=== PATIENT | male | born 1930 | race Two or more races ===

== ENCOUNTER 2016-04-22 13:40 | Observation (INO) | payer MEDICARE, MEDICAID ==
[~2016-04-22] VITALS: Ht 162.6 cm; Wt 76.6 kg
[~2016-04-22 13:40] MED LIST: ATEN25TA PO; FURO40SO4 PO; LISI-571 PO; LOV80 SUBQ; LOVA40TA PO; WARF1TAB6 PO; WARF3TAB7 PO; [UNRECOGNIZED DRUG - CODE] MC
[2016-04-22 13:57] VITALS: BP 135/88; PULSE 59; RESP 20; O2SAT 97
--- NOTE | 2016-04-22 18:07 | ED.REPORT ---
HPI-Trauma Minor / Fall Date of Service Apr 22, 2016 ED Provider: Cintia Nowak History of Present Illness: walked across the street and fell down on Friday afternoon. could walk at the time but now with increasing pain. lower left abd/ hip pain. lives with 89 year old . She has troubles walking. primary care is [facility]. on coumadin provided by jett at [facility]. When asked what caused him to fall, he stated "himself" Nursing Notes Stated Complaint: ABD PAIN DUE TO GLF Chief Complaint: Multiple Trauma/Fall Nursing Notes Reviewed: Yes Allergies: Coded Allergies: No Known Drug Allergies (Verified Allergy, Unknown, 04/05/15) Scheduled Atenolol (Atenolol) 25 Mg Tablet 25 MG PO QPM Furosemide (Furosemide) 40 Mg/4 Ml Solution 20 MG PO QPM Lisinopril (Lisinopril) 5 Mg Tablet 5 MG PO QPM Lovastatin (Lovastatin) 40 Mg Tablet 40 MG PO QPM Warfarin Sodium (Warfarin Sodium) 3 Mg Tablet 3 MG PO QPM General Time Seen by MD: 18:00 Chief Complaint Fall, Abdominal pain Hx Obtained From: Patient, Son Caused by: Accidental Past Medical History Past Medical History myocardial infarction atrial fibrillation on warfarin Reports: Hyperlipidemia, Hypertension Past Surgical History cardiac stent Smoking History Never Smoker Social History Alcohol Use: Denies alcohol use Other Social History: Good social support, Local resident Occupation lives with but she is older. [facility] 04/22/2016 Ambulatory Status Independent Review of Systems Basic Review of Systems Cardiovascular: No chest pain, No dyspnea on exertion, No orthopnea, No parox noct dyspnea, No palpitations Psychiatric: Normal thought content Physical Exam Initial Vital Signs Vital Signs (First) Date Time Temp Pulse Resp B/P Pulse Ox O2 Delivery O2 Flow Rate FiO2 04/22/16 13:57 36.9 59 20 135/88 97 Room Air Initial VS: Reviewed, Vital signs normal Head / Eyes: Atraumatic, Normocephalic, PERRL ENT: Mucous membranes moist, Conjunctiva normal, No scleral icterus Respiratory: Breath sounds normal, Clear to auscultation, No respiratory distress Cardiovascular: Regular rate & rhythm, Heart sounds normal, Intact distal pulses Abdomen / GI: Soft, Non-tender, No guarding, No rebound, No distention Back: No CVA tenderness Lymphatic: No lymphadenopathy Extremities: Vascular intact, Neuro intact, No swelling, No tenderness Skin: Warm, Dry, No cyanosis Neurologic: Alert, Oriented, Nonfocal Psychiatric: Mood/affect normal, Behavior normal, Normal thought content General/Constitutional: Awake, Alert, No acute distress, Well appearing Neck: Atraumatic, Supple, No meningismus, Full range of motion Respiratory / Chest: Atraumatic, Breath sounds NL, Breath sounds = bilat, No respiratory distress Cardiovascular: Heart rate NL, Regular rhythm, Heart sounds NL, No gallop Abdomen: Atraumatic, Soft, Non-tender Interpretation & Diagnostics Lab Results Interpretation Result Diagram: 04/22/16183604/22/167 Test 04/22/16 18:37 White Blood Count 6.6th/mm3 (3.8-10.1) Red Blood Count 5.41mil/mm3 (4.40-5.80) Hemoglobin 17.1g/dL (13.8-17.2) Hematocrit 49.9% (41.0-50.0) Mean Corpuscular Volume 92.2fL (81-100) Mean Corpuscular Hemoglobin 31.6pg (27.0-35.0) Mean Corpuscular Hemoglobin Concent 34.3% (32.0-37.0) Red Cell Distribution Width 13.0% (12.3-15.4) Platelet Count 134bil/L (150-400) Neutrophils (%) (Auto) 63.7% (40-74) Lymphocytes (%) (Auto) 25.9% (14-46) Monocytes (%) (Auto) 7.6% (4-12) Eosinophils (%) (Auto) 2.4% (0-5) Basophils (%) (Auto) 0.2% (0-3) Prothrombin Time 10.9sec (8.1-12.5) Prothromb Time International Ratio 1.02ratio Sodium Level 139mEq/L (134-144) Potassium Level 5.1mEq/L (3.5-5.2) Chloride Level 100mEq/L (97-108) Carbon Dioxide Level 23mmol/L (18-29) Blood Urea Nitrogen 22mg/dL (8-27) Creatinine 1.19mg/dL (0.76-1.27) Estimat Glomerular Filtration Rate 61mL/min (>59) Glucose Level 92mg/dL (60-99) Calcium Level 9.2mg/dL (8.5-10.1) Total Bilirubin 1.9mg/dL (0.0-1.2) Aspartate Amino Transf (AST/SGOT) 20U/L (0-50) Alanine Aminotransferase (ALT/SGPT) 11U/L (0-44) Alkaline Phosphatase 72U/L (25-160) Troponin T < 0.010ug/L (0.0-0.011) Total Protein 7.5g/dL (6.4-8.4) Albumin 4.2g/dL (3.4-5.0) Hold Herndon Top Tube Received (Received) X-Ray Interpretation Xray Interpretation: PROCEDURE: X-RAY PELVIS W/LAT HIP (LT) ([id number]) INDICATIONS: fall pain with walking TECHNIQUE: AP pelvis with lateral view(s) of the left hip(s). COMPARISON: None. FINDINGS: Bones: No fractures or dislocations. Pelvic ring appears intact. No suspicious bony lesions. Soft tissues: The visualized bowel gas pattern is normal. No suspicious soft tissue calcifications. IMPRESSION: No visualized acute fracture or dislocation. However, if clinical concern and/or pain persist, short interval imaging followup in 7-10 days is recommended, as occult injury cannot be definitively excluded. CT Abd / Pelvis Interpretation PROCEDURE: CT ABDOMEN AND PELVIS WITH CONTRAST TRAUMA (PNL 7509) INDICATIONS: fall on Friday, now with increasing left lower abd TECHNIQUE: After the administration of intravenous contrast, 5 mm thick sections acquired from the diaphragms to the symphysis. 5 mm thick coronal and sagittal reformats were acquired. Optional 10-minute delayed imaging may be performed from the kidneys to the bladder. For radiation dose reduction, the following was used: automated exposure control, adjustment of mA and/or kV according to patient size. COMPARISON: [facility], MR, MR ABD MRCP, 03/15/2015, 12:24. [facility], CT, CT ABD HEPATIC PROTOCOL, 03/22/2015, 7:06. [facility], CT, CT ABD PELVIS W CON, 03/14/2015, 22:10. FINDINGS: Image quality: Excellent. ABDOMEN: Lung bases: Lung bases are clear. Heart size is normal. No pericardial effusion. Inferior ribs are intact. No basal pleural effusions or pneumothorax. Solid organs: Liver and spleen are normal in size, without lacerations. The previously identified areas of enhancement within the mid and posterior inferior aspects are not well-seen on today's examination. Gallbladder is unremarkable. Biliary system is non-dilated. Pancreas enhances normally, without transection. No adrenal hematomas. Both kidneys enhance normally, without hydronephrosis or lacerations. Peritoneum and bowel: No free fluid or air. Unenhanced bowel loops demonstrate normal wall thickness and caliber. Nodes and vessels: No retroperitoneal or mesenteric adenopathy. Aorta and inferior vena cava are normal in size and enhancement. Miscellaneous: No ventral hernias. PELVIS: Genitourinary: Bladder wall thickness is normal. Miscellaneous: Fat-containing inguinal hernias are present. Bones: Pelvic ring and hip joints appear intact. No vertebral compression fractures. Left lateral sixth and possibly seventh nondisplaced rib fractures are noted. IMPRESSION: 1. Left lateral sixth and potentially seventh nondisplaced rib fractures are noted. 2. No acute abdominal or pelvic process. Dictated by: Fatmata George M.D. on 04/22/2016 at 19:39 Approved by: Fatmata George M.D. on 04/22/2016 at 19:46 Re-Eval/Medical Decision Med Decision/Clinical Course 86 year old male present for evualation of left side abd pain s/p fall on Friday. Was walking but now it is too painful to move. CT indicates 2 rib fractures. With minimal support at home, it would benefit him from an admission and PT Discharge & Departure Impression: Primary Impression: Fall Encounter type: initial encounter Qualified Code: W19.XXXA - Unspecified fall, initial encounter Additional Impression: Rib fracture Encounter type: initial encounter Rib fracture type: multiple ribs Fracture type: closed Laterality: left Qualified Code: S22.42XA - Multiple fractures of ribs, left side, initial encounter for closed fracture Disposition: ADMITTED TO HOSPITAL Referrals: [facility] (PCP) EDSupervising Provider for APC: Elizabeth Conner MD copies to: [facility] Sue ARNP Apr 22, 2016 18:07
[2016-04-22 18:44] LABS: BASOPHILS % (AUTO) 0.2 % (0-3); EOSINOPHILS % (AUTO) 2.4 % (0-5); MONOCYTES % (AUTO) 7.6 % (4-12); Mean Corpuscular Hemoglobin 31.6 pg (27.0-35.0); Mean Corpuscular Volume 92.2 fL (81-100); NEUTROPHILS % (AUTO) 63.7 % (40-74); Platelet Count 134 bil/L (150-400)
[2016-04-22 19:01] LABS: INR 1.02 ratio
--- NOTE | 2016-04-22 19:35 | DRSVH ---
PROCEDURE: X-RAY PELVIS W/LAT HIP (LT) ([id number]) INDICATIONS: fall pain with walking TECHNIQUE: AP pelvis with lateral view(s) of the left hip(s). COMPARISON: None. FINDINGS: Bones: No fractures or dislocations. Pelvic ring appears intact. No suspicious bony lesions. Soft tissues: The visualized bowel gas pattern is normal. No suspicious soft tissue calcifications. IMPRESSION: No visualized acute fracture or dislocation. However, if clinical concern and/or pain pe rsist, short interval imaging followup in 7-10 days is recommended, as occult injury cannot be defini tively excluded. Dictated by: Fatmata George M.D. on 04/22/2016 at 19:33 Approved by: Fatmata George M.D. on 04/22/2016 at 19:33
--- NOTE | 2016-04-22 19:47 | DRSVH ---
PROCEDURE: CT ABDOMEN AND PELVIS WITH CONTRAST TRAUMA (PNL 7509) INDICATIONS: fall on Friday, now with increasing left lower abd TECHNIQUE: After the administration of intravenous contrast, 5 mm thick sections acquired from the diaphragms to the symphysis. 5 mm thick coronal and sagittal reformats were acquired. Optional 10-minute delayed imaging may be performed from the kidneys to the bladder. For radiation dose reduction, the followi ng was used: automated exposure control, adjustment of mA and/or kV according to patient size. COMPARISON: [facility], MR, MR ABD MRCP, 03/15/2015, 12:24. [facility], CT, CT ABD HEPATIC PROTOCOL, 03/22/2015, 7:06. [facility], CT, CT ABD PELVIS W CON, 03/14/2015 , 22:10. FINDINGS: Image quality: Excellent. ABDOMEN: Lung bases: Lung bases are clear. Heart size is normal. No pericardial effusion. Inferior ribs ar e intact. No basal pleural effusions or pneumothorax. Solid organs: Liver and spleen are normal in size, without lacerations. The previously identified ar eas of enhancement within the mid and posterior inferior aspects are not well-seen on today's examina tion. Gallbladder is unremarkable. Biliary system is non-dilated. Pancreas enhances normally, witho ut transection. No adrenal hematomas. Both kidneys enhance normally, without hydronephrosis or lace rations. Peritoneum and bowel: No free fluid or air. Unenhanced bowel loops demonstrate normal wall thicknes s and caliber. Nodes and vessels: No retroperitoneal or mesenteric adenopathy. Aorta and inferior vena cava are no rmal in size and enhancement. Miscellaneous: No ventral hernias. PELVIS: Genitourinary: Bladder wall thickness is normal. Miscellaneous: Fat-containing inguinal hernias are present. Bones: Pelvic ring and hip joints appear intact. No vertebral compression fractures. Left lateral s ixth and possibly seventh nondisplaced rib fractures are noted. IMPRESSION: 1. Left lateral sixth and potentially seventh nondisplaced rib fractures are noted. 2. No acute abdominal or pelvic process. Dictated by: Fatmata George M.D. on 04/22/2016 at 19:39 Approved by: Fatmata George M.D. on 04/22/2016 at 19:46
[2016-04-22] MEDS ORDERED: HYDROcodone-APAP 5-325 mg Tablet PO ONE (20:10)
[2016-04-22] MEDS ORDERED: Polyethylene Glycol (PEG) 17 Gm Powder PO PRN (21:15)
[2016-04-22] MEDS ORDERED: Ondansetron 2 mg/mL 2 mL Inj IVPUSH PRN (21:15)
--- NOTE | 2016-04-22 22:00 | NUR ---
Pt arrived to [facility] rm 1014 accompanied by son, report recieved at 2047 from Kasey in ED. Pt allows son to interpret for initial admit assessment- has no complaints of pain at this time. Requested snacks. Granddaughters remain in room.
[2016-04-22 22:30] VITALS: PULSE 58
[2016-04-22 22:33] VITALS: BP 109/68; PULSE 65; RESP 18; O2SAT 96
--- NOTE | 2016-04-22 23:43 | PCM.HPMED ---
Subjective Date of Service Apr 22, 2016 Primary Provider: Admitting Physician: Karmen Richard DO Primary Care Physician: [facility]ju[facility] Attending Physician: Karmen Richard DO Admit Status: From the Emergency Department Chief Complaint: Pain due to ground-level fall History of Present Illness: 87-year-old male with past medical history of atrial fibrillation on warfarin, myocardial infarction, hyperlipidemia, and hypertension presents with increasing pain after he fell down on Friday afternoon while walking across the street. The fall seems to be a simple trip without instigating factor and no loss of consciousness. He reports left lower abdominal and hip pain. He lives with his 89-year-old who has trouble walking his primary care provider is Dr. Drew at [facility] who prescribes Coumadin. Patient describes intense pain with coughing and taking deep breaths. He does not feel short of breath though. Reports no headache, diarrhea, or constipation. Patient primarily speaks [place], and interview was done with granddaughter translation as that was preferred over the video laundry press operator. In the emergency department INR was found to be 1.02, with a platelet count of 134. CT abdomen and pelvis shows left lateral sixth and possibly 7 nondisplaced rib fractures, no acute abdominal or pelvic process. X-ray pelvis with left lateral hip shows no visualized acute fracture or dislocation with recommendation for short interval imaging follow-up in 7-10 days if symptoms persist. Review of Systems: A comprehensive review of systems was conducted with the patient and found to be negative except as above in the History of Present Illness. Allergies Coded Allergies: No Known Drug Allergies (Verified Allergy, Unknown, 04/05/15) Home Medications Atenolol 25 mg by mouth every afternoon Furosemide 40 mg per 4 mL solution 20 mg by mouth every afternoon Lisinopril 5 mg by mouth every afternoon Lovastatin 40 mg by mouth every afternoon Warfarin 3 mg by mouth every afternoon PMH Atrial fibrillation, on warfarin Myocardial infarction Hyperlipidemia Hypertension Surgical History Cardiac stent Family History history of cad Social History Hx Alcohol Use: No Hx Substance Use: No Hx Tobacco Use: No Smoking Status: Never Smoker Living Arrangement: with Family Exam Vital Signs Vital Sign - Last Date Time Temp Pulse Resp B/P Pulse Ox O2 Delivery O2 Flow Rate FiO2 04/22/16 22:33 36.4 65 18 109/68 96 Room Air Exam General: No acute distress, well-developed, well-nourished, appropriately interactive, does not speak Kyrgyz HEENT: Normocephalic, atraumatic. External ears without defect. Pupils equal, round, and reactive to light and accommodation. Anicteric sclerae, moist conjunctivae, and no lid lag. Oropharynx free of erythema and cobble stoning with moist mucosa. Neck: Supple with full range of motion. No jugular venous distension. No bruits. No lymphadenopathy or thyromegaly. Cardiovascular: Irregularly irregular rate with no murmurs, rubs, or gallops appreciated Pulmonary: Clear to auscultation bilaterally with no crackles, wheezes, or rhonchi. Normal respiratory effort with no use of accessory muscles. Abdomen: Bowel tones present. Soft, nontender, nondistended. No hepatosplenomegaly or masses appreciated. Extremities: No clubbing, cyanosis, trace edema, or lymphadenopathy appreciated. Skin: Normal temperature, turgor, and texture; no rash, ulcers, or subcutaneous nodules appreciated. Neurological: Cranial nerves grossly intact. Normal muscle strength, tone, and bulk. Reflexes, coordination, and sensory function within normal limits. No known gait impairment. Psychiatric: Normal mood and affect. Alert and oriented to person, place, and time. Lab and Diagnostics Result Diagram: 04/22/16183604/22/161836 X-Rays, CTs and MRIs PROCEDURE: X-RAY PELVIS W/LAT HIP (LT) ([id number]) IMPRESSION: No visualized acute fracture or dislocation. However, if clinical concern and/or pain persist, short interval imaging followup in 7-10 days is recommended, as occult injury cannot be definitively excluded. Dictated by: Fatmata George M.D. on 04/22/2016 at 19:33 PROCEDURE: CT ABDOMEN AND PELVIS WITH CONTRAST TRAUMA (PNL 7509) INDICATIONS: fall on Friday, now with increasing left lower abd IMPRESSION: 1. Left lateral sixth and potentially seventh nondisplaced rib fractures are noted. 2. No acute abdominal or pelvic process. Dictated by: Fatmata George M.D. on 04/22/2016 at 19:39 Assessment & Plan 87-year-old male with past medical history of atrial fibrillation on warfarin, myocardial infarction, hyperlipidemia, and hypertension presents with increasing pain after he fell down on Friday afternoon while walking across the street. Found to have left lateral rib fractures. 1. Left lateral sixth and potentially seventh nondisplaced rib fractures, present on admission, acute - Pain control with Hiram and Tylenol. - No current bleeding or ecchymoses, subtherapeutic INR - Physical therapy evaluation for gait and rib fracture recovery 2. Atrial fibrillation, present on admission, chronic - On Coumadin, subtherapeutic with an INR of 1.04 - Warfarin dosing per pharmacy - No requirement for bridge. concern for hemorrhage - May reconsider restarting warfarin 3. Hypertension, chronic, not currently active - Continue atenolol, furosemide, and lisinopril 4. Hyperlipidemia, chronic - Continue lovastatin substitute nightly Acetaminophen for mild pain when necessary. Bowel regimen Senna and MiraLAX PRN. Zofran when necessary for nausea and vomiting. DVT prophylaxis with sub cutaneous Lovenox Patient will like to be full code after discussion with him and his granddaughters. He does not desire extended period of time with breathing tube. Patient was admitted under inpatient status with expected length of stay greater than 2 midnights due to severity of presenting symptoms, risk of adverse event, and complexity of treatment plan. Pain Evaluation: Pain not Controlled GI Prophylaxis: Not indicated VTE Prophylaxis: Sub-Q Enoxaparin VTE Mechanical Devices: Intermittant Pneumatic CD Resuscitation Status: CPR: Attempt Resuscitation Attending Statement /The patient was seen and examined together with house staff on 04/22/2016 and I agree with the history, exam and plan as outlined in the note above/. copies to: [facility] Serenity Montiel DO Apr 22, 2016 23:43 Karmen Richard DO Apr 23, 2016 05:57
[2016-04-23] VITALS (8 sets, daily range): BP systolic 115–131; BP diastolic 71–83; PULSE 54–75; RESP 17–20; O2SAT 94–99
[2016-04-23] MEDS ORDERED: HYDROcodone-APAP 5-325 mg Tablet PO PRN (01:40)
--- NOTE | 2016-04-23 04:41 | NUR ---
Activity Pt has no complaints of pain this shift- family has been instructed to report changed or complaints to RN as soon as possible. HR remains >40, on tele and cpox. Afib per history. No changes, care continues
[2016-04-23 07:06] LABS: INR 1.03 ratio
--- NOTE | 2016-04-23 10:44 | PCM.PHAPRO ---
Progress l Warfarin Management by Pharmacy: -Indication: afib -Home Dose: warfarin 3mg daily -Inr Goal: 2-3 -HCT/PLT on admit: 49.9/134 -Coagulation Trends: 04/22: 1.02 04/23: 1.03 -Concurrent Anticoagulation: none -Plan: will continue with pt's home dose of warfarin 3mg and follow. serial inr's have been ordered Ernestina Sierra [facility] Apr 23, 2016 10:44
--- NOTE | 2016-04-23 11:47 | NUR ---
Evaluation completed. Please go to "Notes" then click on "Assessments and Notes" (bottom left corner of screen). Then select appropriate discipline tab on top of screen.
--- NOTE | 2016-04-23 12:05 | NUR ---
Case Management: DUVALL given and explained to Pt and son at 11:55. Carina YOUNG,RN
--- NOTE | 2016-04-23 15:49 | NUR ---
Social Work Note - Initial assessment Javon Rowan is a 86 yr old who was admitted for fall at home with sustained rib fracture. EMR reviewed: Pt has Medicare and [facility] insurance. His PCP is at the [facility]. No correction care insurance, no VA benefits. Pt has no DPOA - paperwork given. See attached CM initial assessment. [employer] met with pt - Pt's son Vito in the room acting as unix architect. [employer] introduced D/C planning and explained SW role. Pt lives at home with his in [place] - in a senior apartment. He is independent at baseline. Son identifies that he forgets that he is a fall risk and has some memory changes. He has no DME at home - family thinks a walker would be helpful - they may buy one from a used goods store. PT is recommending PT - Pt and family are in agreement. [employer] provided choices list - They have no preference - referred to vendor calendar and made referral to [facility] for RN PT. Pt may be ready for d/c tomorrow. Family will drive Pt home. Plan: home with family in POV with [facility] for RN PT. MARY Ortiz Addendum: 04/23/16 at 1554 by KARLY PUENTE Amended: Links added.
[2016-04-23 16:00] LABS: APPEARANCE,URINE CLEAR (CLEAR,HAZY); COLOR,URINE DARK YELLOW (YELLOW); PH,URINE 6.5 (5.0-8.0)
[2016-04-23 16:01] LABS: OCCULT BLOOD,URINE NEGATIVE (NEGATIVE); UROBILINOGEN,URINE 2 mg/dL (NORMAL)
--- NOTE | 2016-04-23 16:56 | PCM.PNMED ---
Subjective Date of Service Apr 23, 2016 Subjective Patient was seen and examined at bedside today. Patient denies any chest pain, shortness of breath, nausea, vomiting, diarrhea. Medicaid Service Coordinator was present during exam along with the patient's son. Exam Vital Signs Vital Sign - Last Date Time Temp Pulse Resp B/P Pulse Ox O2 Delivery O2 Flow Rate FiO2 04/23/16 13:07 36.3 69 18 131/79 99 Room Air Exam Physical Exam: GEN: Patient was awake, alert, responding appropriately to questions HEENT: PERRLA, EOMI, Neck soft supple, trachea midline, nomocephalic/atraumatic CV: +S1/S2, RRR, Respiratory: CTAB, no wheezes, rales, rhonchi GI: +bowel sounds x4, soft, compressible, non TTP EXT: no c/c/e Musculoskeletal: Left-sided rib pain tender to palpation Neuro: CN II-XII grossly intact Psych: mood and affect were appropriate IVs and Medications Medications Reviewed: Medications were reviewed in detail Lab and Diagnostics Result Diagram: 04/22/16183604/22/161836 X-Rays, CTs and MRIs PROCEDURE: X-RAY PELVIS W/LAT HIP (LT) ([id number]) IMPRESSION: No visualized acute fracture or dislocation. However, if clinical concern and/or pain persist, short interval imaging followup in 7-10 days is recommended, as occult injury cannot be definitively excluded. Dictated by: Fatmata George M.D. on 04/22/2016 at 19:33 PROCEDURE: CT ABDOMEN AND PELVIS WITH CONTRAST TRAUMA (PNL 7509) INDICATIONS: fall on Friday, now with increasing left lower abd IMPRESSION: 1. Left lateral sixth and potentially seventh nondisplaced rib fractures are noted. 2. No acute abdominal or pelvic process. Dictated by: Fatmata George M.D. on 04/22/2016 at 19:39 Assessment & Plan 87-year-old male with past medical history of atrial fibrillation on warfarin, myocardial infarction, hyperlipidemia, and hypertension presents with increasing pain after he fell down on Friday afternoon while walking across the street. Found to have left lateral rib fractures. 1. Left lateral sixth and potentially seventh nondisplaced rib fractures, present on admission, acute - Pain control with Dante and Tylenol. - No current bleeding or ecchymoses, subtherapeutic INR - Physical therapy evaluation for gait and rib fracture recovery 2. Atrial fibrillation, present on admission, chronic - On Coumadin, subtherapeutic with an INR of 1.04 - Warfarin dosing per pharmacy - No requirement for bridge. concern for hemorrhage - May reconsider restarting warfarin 3. Hypertension, chronic, not currently active - Continue atenolol, furosemide, and lisinopril 4. Hyperlipidemia, chronic - Continue lovastatin substitute nightly Acetaminophen for mild pain when necessary. Bowel regimen Senna and MiraLAX PRN. Zofran when necessary for nausea and vomiting. DVT prophylaxis with sub cutaneous Lovenox Disposition: The patient was evaluated by physical therapy today. Patient was able to walk but had some difficulty secondary to the left-sided rib pain. The patient's son was present during the exam along with an certified medicine aide the patient does have family that lives close to him and very involved. The patient's [id number] cares for the house and the cleaning. The son did state that if necessary somebody could stay the night with the patient/Summary present in the house at all times until the patient heals. We will discuss with psych social worker tomorrow and the patient may be also able to be discharged home if she will have this type of assistance. GI Prophylaxis: Not indicated VTE Prophylaxis: Sub-Q Enoxaparin VTE Mechanical Devices: Intermittant Pneumatic CD Resuscitation Status: CPR: Attempt Resuscitation Time spent Greater than 35 minutes Samantha Reyes DO Apr 23, 2016 16:56
--- NOTE | 2016-04-23 18:18 | NUR ---
Pain, Tele Patient repeatedly states that pain to left abdomen is within tolerable level. States that pain level increases when getting up or working with PT but is tolerable when in bed. Patient encouraged to continue to take deep breaths. Patient heart rate continues to be bradycardic with a fib per cardiac monitor technician. Heart rate dipped down to low 40s, with one incident down to 37. Hospitalist made aware, no new orders received. Patient asymptomatic, heart rate returned to 50s without incident. Care is ongoing.
--- NOTE | 2016-04-23 23:19 | NUR ---
Telemetry Pt's HR is bradycardic in the low 50s Afib. He frequently drops intermittently to the low 30s. Reported findings to MD. Atenolol evening dose held. Pt/son understand that he will not have his atenolol tonight. Pt is asymptomatic. Will cont to monitor
[2016-04-24 00:02] VITALS: BP 121/79; PULSE 54; RESP 20; O2SAT 94
[2016-04-24 04:15] VITALS: BP 137/73; PULSE 92; RESP 20; O2SAT 95
[2016-04-24 04:55] VITALS: BP 111/65; PULSE 62; RESP 20; O2SAT 97
[2016-04-24 06:53] LABS: Mean Corpuscular Hemoglobin 31.4 pg (27.0-35.0); Mean Corpuscular Volume 91.5 fL (81-100)
[2016-04-24 07:05] LABS: INR 1.01 ratio
--- NOTE | 2016-04-24 07:57 | PCM.PHAPRO ---
Progress l Warfarin Management by Pharmacy: -Indication: afib -Home Dose: warfarin 3mg daily -Inr Goal: 2-3 -HCT/PLT on admit: 49.9/134, HCT/PLT 04/24 47.2/121 -Coagulation Trends: 04/22: 1.02 04/23: 1.03 warfarin 3mg -Concurrent Anticoagulation: none -Plan: Day 2 of warfarin, will continue with pt's home dose of 3mg and follow. serial inr's have been ordered Ernestina Sierra [facility] Apr 24, 2016 07:57
[2016-04-24 09:27] VITALS: BP 114/74; PULSE 74; RESP 18; O2SAT 97
[2016-04-24 11:01] VITALS: PULSE 58
--- NOTE | 2016-04-24 12:58 | PCM.DIMED ---
Discharge Instructions Date of Service Apr 24, 2016 Dates of Hospitalization Apr 22, 2016 at 21:15 Discharge Diagnosis Discharge Diagnosis Rib fracture left lateral sixth and seventh Atrial fibrillation Hypertension Diet No restrictions Activity No restrictions (as tolerated) Patient Instructions Patient will be discharged home with home health. Patient should have a family member for home health care worker with him throughout the day and especially at night for safety assistant until the patient has recovered and is able to do all of his own self-care as he did prior to the rib fracture. The patient's son has ensured us that someone will be present with him at all times until he heals. Follow-up Provider: [facility] Follow-up with PCP in: 1 week (if an appointment has not been made please call to make an appointment) Samantha Reyes DO Apr 24, 2016 12:58
[2016-04-24] MEDS ORDERED: HYDR-4003 PO (12:59)
--- NOTE | 2016-04-24 13:06 | PCM.DC.MED ---
Discharge Summary Date of Service Apr 24, 2016 Dates of Hospitalization Date of Hospital Admission Apr 22, 2016 at 21:15 Date of Discharge: Apr 24, 2016 Providers: Admitting Physician: Karmen Richard DO Primary Care Physician: [facility]-Сергей SanjuRichard Attending Physician: Karmen Richard DO Diagnosis at Time of Discharge Diagnosis at Time of Discharge Rib fracture left lateral sixth and seventh Atrial fibrillation Hypertension Procedures XRay, CTs & MRIs PROCEDURE: X-RAY PELVIS W/LAT HIP (LT) ([id number]) IMPRESSION: No visualized acute fracture or dislocation. However, if clinical concern and/or pain persist, short interval imaging followup in 7-10 days is recommended, as occult injury cannot be definitively excluded. Dictated by: Fatmata George M.D. on 04/22/2016 at 19:33 PROCEDURE: CT ABDOMEN AND PELVIS WITH CONTRAST TRAUMA ([id number]) INDICATIONS: fall on Friday, now with increasing left lower abd IMPRESSION: 1. Left lateral sixth and potentially seventh nondisplaced rib fractures are noted. 2. No acute abdominal or pelvic process. Dictated by: Fatmata George M.D. on 04/22/2016 at 19:39 Brief History 87-year-old male with past medical history of atrial fibrillation on warfarin, myocardial infarction, hyperlipidemia, and hypertension presents with increasing pain after he fell down on Friday afternoon while walking across the street. The fall seems to be a simple trip without instigating factor and no loss of consciousness. He reports left lower abdominal and hip pain. He lives with his 89-year-old who has trouble walking his primary care provider is Dr. Drew at [facility] who prescribes Coumadin. Patient describes intense pain with coughing and taking deep breaths. He does not feel short of breath though. Reports no headache, diarrhea, or constipation. Patient primarily speaks Portuguese, and interview was done with granddaughter translation as that was preferred over the video calculus professor. In the emergency department INR was found to be 1.02, with a platelet count of 134. CT abdomen and pelvis shows left lateral sixth and possibly 7 nondisplaced rib fractures, no acute abdominal or pelvic process. X-ray pelvis with left lateral hip shows no visualized acute fracture or dislocation with recommendation for short interval imaging follow-up in 7-10 days if symptoms persist. Hospital Course 87-year-old male with past medical history of atrial fibrillation on warfarin, myocardial infarction, hyperlipidemia, and hypertension presents with increasing pain after he fell down on Friday afternoon while walking across the street. Found to have left lateral rib fractures. Patient is Portuguese speaking only and son was present and use as an technical support representative today. Family denied request for video technical support representative services for today. Patient was seen and examined for his rib fracture. The patient was evaluated by physical therapy who recommended home health services. The patient's son stated that he has a good support system as he has older children and someone could be present in the house with the patient at all times. As always the patient has good family support and will have somebody to monitor and assist with his activities of daily living as well as somebody to be present during the night in case the patient follows he is safe to go home. The patient's son assured us that somebody would be present until the patient has recovered from his rib fracture and is able to care for himself and his . The patient is being discharged home in stable condition with home health and family support. 1. Left lateral sixth and potentially seventh nondisplaced rib fractures, present on admission, acute - Pain control with [place] and Tylenol. - No current bleeding or ecchymoses, subtherapeutic INR - Physical therapy evaluation for gait and rib fracture recovery 2. Atrial fibrillation, present on admission, chronic - On Coumadin, subtherapeutic with an INR of 1.04 - Warfarin dosing per pharmacy - No requirement for bridge. concern for hemorrhage - May reconsider restarting warfarin 3. Hypertension, chronic, not currently active - Continue atenolol, furosemide, and lisinopril 4. Hyperlipidemia, chronic - Continue lovastatin substitute nightly Acetaminophen for mild pain when necessary. Bowel regimen Senna and MiraLAX PRN. Zofran when necessary for nausea and vomiting. DVT prophylaxis with sub cutaneous Lovenox Disposition: The patient was evaluated by physical therapy today. Patient was able to walk but had some difficulty secondary to the left-sided rib pain. The patient's son was present during the exam along with an technical support representative the patient does have family that lives close to him and very involved. The patient's [id number] cares for the house and the cleaning. The son did state that if necessary somebody could stay the night with the patient/Summary present in the house at all times until the patient heals. We will discuss with social media project manager tomorrow and the patient may be also able to be discharged home if she will have this type of assistance. Exam Vital Signs (Last) Date Time Temp Pulse Resp B/P Pulse Ox O2 Delivery O2 Flow Rate FiO2 04/24/16 11:01 58 04/24/16 09:27 36.4 18 114/74 97 Room Air Exam Physical Exam: GEN: Patient was awake, alert, responding appropriately to questions HEENT: PERRLA, EOMI, Neck soft supple, trachea midline, nomocephalic/atraumatic CV: +S1/S2, RRR, no murmur auscultated Respiratory: CTAB, no wheezes, rales, rhonchi GI: +bowel sounds x4, soft, compressible, non TTP EXT: no c/c/e Musculoskeletal: Left-sided rib pain with palpation Neuro: CN II-XII grossly intact Psych: mood and affect were appropriate Test 04/22/16 18:37 04/23/16 15:41 04/24/16 06:25 Neutrophils (%) (Auto) 63.7% (40-74) Lymphocytes (%) (Auto) 25.9% (14-46) Monocytes (%) (Auto) 7.6% (4-12) Eosinophils (%) (Auto) 2.4% (0-5) Basophils (%) (Auto) 0.2% (0-3) Troponin T < 0.010ug/L (0.0-0.011) Hold [place] Top Tube Received (Received) Urine Color Dark yellow (YELLOW) Urine Appearance Clear (CLEAR,HAZY) Urine pH 6.5 (5.0-8.0) Urine Specific [place] 1.020 (1.003-1.035) Urine Protein Negativemg/dL (NEG,TRACE) Urine Glucose (UA) Negativemg/dL (NEGATIVE) Urine Ketones Negativemg/dL (NEGATIVE) Urine Occult Blood Negative (NEGATIVE) Urine Nitrite Negative (NEGATIVE) Urine Bilirubin Negative (NEGATIVE) Urine Urobilinogen 2mg/dL (NORMAL) Urine Leukocyte Esterase Negative (NEGATIVE) Urine RBC 0-2/hpf (0-2) Urine WBC 0-5/hpf (0-5) Urine Epithelial Cells None/hpf (NONE-MOD) Urine Crystals None seen (NONE SEEN) Urine Bacteria Few/hpf (NONE-FEW) Urine Hyaline Casts None/lpf (NONE) Urine Granular Casts None seen (NONE SEEN) Urine Waxy Casts None seen (NONE SEEN) Urine Red Blood Cell Casts None seen (NONE SEEN) Urine White Blood Cell Casts None seen (NONE SEEN) Urine Mucus Present (None Seen) Urine Trichomonas None seen (NONE SEEN) Urine Yeast None (NONE SEEN) Urinalysis Comment None Urine Culture Reflexed Not indicated White Blood Count 5.8th/mm3 (3.8-10.1) Red Blood Count 5.16mil/mm3 (4.40-5.80) Hemoglobin 16.2g/dL (13.8-17.2) Hematocrit 47.2% (41.0-50.0) Mean Corpuscular Volume 91.5fL (81-100) Mean Corpuscular Hemoglobin 31.4pg (27.0-35.0) Mean Corpuscular Hemoglobin Concent 34.3% (32.0-37.0) Red Cell Distribution Width 12.7% (12.3-15.4) Platelet Count 121bil/L (150-400) Prothrombin Time 10.8sec (8.1-12.5) Prothromb Time International Ratio 1.01ratio Sodium Level 140mEq/L (134-144) Potassium Level 4.2mEq/L (3.5-5.2) Chloride Level 101mEq/L (97-108) Carbon Dioxide Level 24mmol/L (18-29) Blood Urea Nitrogen 21mg/dL (8-27) Creatinine 1.14mg/dL (0.76-1.27) Estimat Glomerular Filtration Rate 64mL/min (>59) Glucose Level 93mg/dL (60-99) Calcium Level 8.7mg/dL (8.5-10.1) Total Bilirubin 1.2mg/dL (0.0-1.2) Aspartate Amino Transf (AST/SGOT) 15U/L (0-50) Alanine Aminotransferase (ALT/SGPT) 10U/L (0-44) Alkaline Phosphatase 65U/L (25-160) Pro-B-Type Natriuretic Peptide 807.7pg/mL (0-486) Total Protein 5.8g/dL (6.4-8.4) Albumin 3.8g/dL (3.4-5.0) Discharge Medications Discharge Medications Atenolol (Atenolol) 25 Mg Tablet 25 MG PO QPM (Reported) Furosemide (Furosemide) 40 Mg/4 Ml Solution 20 MG PO QPM (Reported) Lisinopril (Lisinopril) 5 Mg Tablet 5 MG PO QPM (Reported) Lovastatin (Lovastatin) 40 Mg Tablet 40 MG PO QPM (Reported) Warfarin Sodium (Warfarin Sodium) 3 Mg Tablet 3 MG PO QPM (Reported) As needed Hydrocodone-Acetaminophen 5-325 mg (Hydrocodone-Acetaminophen 5-325 mg) 1 Each Tablet 1 TABLET PO Q4H PRN PRN For Mild Pain Prescribed by: EILEEN OLSON DO Followup Plan Discharge Diet: No restrictions Discharge Activity: No restrictions (as tolerated) Patient Instructions Patient will be discharged home with home health. Patient should have a family member for home health care worker with him throughout the day and especially at night for assistant terminal manager until the patient has recovered and is able to do all of his own self-care as he did prior to the rib fracture. The patient's son has ensured us that someone will be present with him at all times until he heals. Follow-up Provider: [facility] Follow-up with PCP in: 1 week (if an appointment has not been made please call to make an appointment) Time spent Greater than 35 minutes copies to: [facility] Precious L DO Apr 24, 2016 13:06
--- NOTE | 2016-04-24 13:26 | NUR ---
Social Work: Discharge Data: Pt is on day 2 of hospitalization. EMR reviewed. D/C orders are in. ORACLE FORMS DEVELOPER spoke with PT who state pt does not need a walker. ORACLE FORMS DEVELOPER talked with Harshad Olson with [facility] and notified that pt will d/c today. Access given, F2F ready for [facility] to pepper picker. No further d/c planning needs. ORACLE FORMS DEVELOPER will continue to follow if needs arise. Assessment: Pt who is independent at baseline. Plan: Pt will d/c home via POV with son today with [facility], RN/PT. No further d/c planning needs. ORACLE FORMS DEVELOPER will continue to follow if needs arise. ROSY Taveras
[2016-04-24 14:11] VITALS: BP 115/76; PULSE 84; RESP 18; O2SAT 95
--- NOTE | 2016-04-24 15:32 | NUR ---
discharged home with son discharge instructions discussed with paint line production supervisor on a stick. Pt to have f/u appt with [facility], will also have [facility]. Pt denies pain, has not wanted any pain meds, but will be going home with Rx for Vicodin in case needs it later
== END 2016-04-24 15:15 | disposition home health service (06) ==
LOC: SED 13:40 → OSC 21:15
PROVIDERS: ADMIT Internal Medicine; ATTEND Internal Medicine
DX: S22.42XA Multiple fractures of ribs, left side, initial encounter for closed fracture (principal); W01.0XXA Fall on same level from slipping, tripping and stumbling without subsequent striking against object, initial encounter; Y93.01 Activity, walking, marching and hiking; Y92.414 Local residential or business street as the place of occurrence of the external cause; I48.91 Unspecified atrial fibrillation; I10 Essential (primary) hypertension; I25.2 Old myocardial infarction; E78.5 Hyperlipidemia, unspecified; Z79.01 Long term (current) use of anticoagulants
CPT/HCPCS: 36415; 73501; 74177; 80053; 81000; 83880; 84484; 85025; 85027; 85610; 93005; 97161; 99285; G0378; Q9967